=== PATIENT | male | born 1955 ===

== ENCOUNTER 2023-03-04 05:48 | Day surgery (SDC) | payer MEDICARE ==
[2023-03-02 14:09] VITALS: BMI 55.2
[2023-03-04] MEDS ORDERED: Vancomycin (BATCH) 1.5 GRAM/300 ML BAG ONE (06:09)
[2023-03-04] MEDS ORDERED: CEFAZOLIN 1 GM VIAL ONE ×2 (06:59→08:20)
[2023-03-04] MEDS ORDERED: Lidocaine 1% (PF) 30 ML VIAL ONE (06:59)
[2023-03-04] MEDS ORDERED: Gentamicin 80 MG/2 ML VIAL ONE (07:14)
[2023-03-04] MEDS ORDERED: Midazolam HCl 2 mg/2 ml Vial ONE (07:37)
[2023-03-04] MEDS ORDERED: fentaNYL 50 mcg/mL 1 mL Vial ONE ×2 (07:37→08:20)
[2023-03-04] MEDS ORDERED: diphenhydrAMINE 50 MG/ML VIAL ONE (07:48)
[2023-03-04] MEDS ORDERED: PROPOFOL 200 MG/20 ML VIAL ONE (07:48)
[2023-03-04] MEDS ORDERED: Ondansetron PF 4 MG/2 ML Vial ONE (07:48)
== END 2023-03-04 13:04 | disposition home or self-care (01) ==
LOC: SDC 05:48
PROVIDERS: ATTEND Internal Medicine Cardiovascular Disease
PROC: 0JPT0PZ Removal of Cardiac Rhythm Related Device from Trunk Subcutaneous Tissue and Fascia, Open Approach (ICD-10-PCS; principal; 2023-03-04)
PROC: 0JH607Z Insertion of Cardiac Resynchronization Pacemaker Pulse Generator into Chest Subcutaneous Tissue and Fascia, Open Approach (ICD-10-PCS; 2023-03-04)
PROC: 3E0102A Introduction of Anti-Infective Envelope into Subcutaneous Tissue, Open Approach (ICD-10-PCS; 2023-03-04)
DX: Z45.010 Encounter for checking and testing of cardiac pacemaker pulse generator [battery] (principal); I11.0 Hypertensive heart disease with heart failure; I50.22 Chronic systolic (congestive) heart failure; I44.2 Atrioventricular block, complete; I42.8 Other cardiomyopathies; G25.81 Restless legs syndrome; Z86.718 Personal history of other venous thrombosis and embolism; Z79.1 Long term (current) use of non-steroidal anti-inflammatories (NSAID); Z79.82 Long term (current) use of aspirin; Z79.899 Other long term (current) drug therapy; Z88.5 Allergy status to narcotic agent; Z88.8 Allergy status to other drugs, medicaments and biological substances
CPT/HCPCS: 33208; 33241; 71045; 93005; J3010; J3370; J0690; J1200; J1580; J2001; J2250; J2405; J2704